=== PATIENT | female | born 1985 | race Caucasian/White ===

== ENCOUNTER 2016-05-16 12:35 | Emergency (ER) | payer MEDICAID ==
[~2016-05-16] VITALS: Ht 167.6 cm; Wt 89.0 kg
[~2016-05-16 12:35] MED LIST: Z.0.BCPILL PO
[2016-05-16 12:37] VITALS: BP 122/68; PULSE 94; RESP 16; TEMP 98.2; O2SAT 92
--- NOTE | 2016-05-16 15:29 | PD ---
HPI Chief Complaint: Related Problem Time Seen by Provider: 15:25 Travel History International Travel<30 days: No Contact w/Intl Traveler<30days: No Traveled to known affect area: No History of Present Illness HPI Patient is a 30-year-old female who presents emergency department for evaluation of vaginal bleeding. Patient states she started spotting on Monday of last week through Monday. On Monday morning she had heavier bleeding and was passing clots. She reports her last menstrual cycle was on 04/02/16, she stated it started on 03/15/16. Patient reports a miscarriage in January, at that time she was approximately 8 weeks . Patient has 2 home tests with her currently that are positive. She states that she's felt nauseated, has had decreased appetite and a cough. She does have an appointment with her primary doctor tomorrow to be evaluated. PFSH Past Medical History Medical History: Denies Significant Hx Cancer: No Cardiovascular Problems: No Diabetes: No Endocrine: No Hepatitis: No Musculoskeletal: Yes (chronic back pain) Reproductive: Yes (ovarian cysts) Respiratory: No Immunizations Current: Yes Thyroid Disease: No ?: LMP: 04/02/16 : 2 Para: 2 Miscarriage: 1 Ovarian Cysts: Yes Past Surgical History AICD: No Body Medical Devices: NONE Section: Yes Gynecologic Surgery: Yes (C SECTION x2) Joint Replacement: No Pacemaker: No Social History Alcohol Use: No Tobacco Use: No Substance Use: No Allergies-Medications (Allergen,Severity, Reaction): Coded Allergies: No Known Allergies (Verified , 05/16/16) Reported Meds & Prescriptions Reported Meds & Active Scripts Active Reported Control Pills (Miscellaneous Medication) Tab 1 Tab PO HS Review of Systems Except as stated in HPI: all other systems reviewed are Neg Respiratory: Positive: Cough Gastrointestinal: Positive: Nausea Genitourinary: Positive: Vaginal Bleeding Physical Exam Narrative GENERAL: Well-developed, well-nourished, alert female. Resting comfortably in no acute distress. SKIN: Warm and dry. HEAD: Atraumatic. Normocephalic. EYES: Pupils equal and round. No scleral icterus. No injection or drainage. ENT: No nasal bleeding or discharge. Mucous membranes pink and moist. NECK: Trachea midline. No JVD. CARDIOVASCULAR: Regular rate and rhythm. No murmur appreciated. RESPIRATORY: No accessory muscle use. Clear to auscultation. Breath sounds equal bilaterally. GASTROINTESTINAL: Abdomen soft, non-tender, nondistended. Hepatic and splenic margins not palpable. MUSCULOSKELETAL: No obvious deformities. No clubbing. No cyanosis. No edema. NEUROLOGICAL: Awake and alert. No obvious cranial nerve deficits. Motor grossly within normal limits. Normal speech. PSYCHIATRIC: Appropriate mood and affect; insight and judgment normal. Data Data Last Documented VS Vital Signs Date Time Temp Pulse Resp B/P Pulse Ox O2 Delivery O2 Flow Rate FiO2 05/16/16 12:37 98.2 94 16 122/68 92 Room Air Orders Ed Urine Pregnancytest Poc (05/16/16 13:20) Beta Hcg (Quant/Titer) (05/16/16 13:20) Urinalysis - C+S If Indicated (05/16/16 15:28) Us Pelvis (Ques Pr/Ect)W Trans (05/16/16 ) Labs Laboratory Tests Test 05/16/16 05/16/16 15:04 15:10 Urine Color YELLOW Urine Turbidity CLEAR Urine pH 6.0 Urine Specific [place] 1.023 Urine Protein NEG mg/dL Urine Glucose (UA) NEG mg/dL Urine Ketones NEG mg/dL Urine Occult Blood NEG Urine Nitrite NEG Urine Bilirubin NEG Urine Urobilinogen LESS THAN 2.0 MG/DL Urine Leukocyte Esterase NEG Urine RBC 1 /hpf Urine WBC 1 /hpf Urine Squamous Epithelial 5 /hpf Cells Urine Bacteria RARE /hpf Urine Hyaline Casts 1 /lpf Urine Mucus FEW /lpf Microscopic Urinalysis Comment CULT NOT INDICATED Human Chorionic Gonadotropin, 70 MIU/ML Quant MDM Medical Decision Making Medical Screen Exam Complete: Yes Emergency Medical Condition: Yes Interpretation(s) Vital Signs Date Time Temp Pulse Resp B/P Pulse Ox O2 Delivery O2 Flow Rate FiO2 05/16/16 12:37 98.2 94 16 122/68 92 Room Air Differential Diagnosis Threatened miscarriage versus spontaneous versus anemia versus dysfunctional uterine bleeding versus other Narrative Course Patient is a 30-year-old female presenting to the emergency department for evaluation of vaginal bleeding after positive test. Urine test performed in the emergency department is positive. HCG ordered and pending. Patient is resting comfortably, her vital signs are stable. Patient will be transferred to medical bed when available. Nara Thompson May 16, 2016 15:29
[2016-05-16 15:50] LABS: BETA HCG QUANT 70 MIU/ML (0-5)
[2016-05-16 16:11] LABS: BACTERIA, URINE RARE /hpf; BLOOD, URINE NEG (NEG); COMMENT (UR) CULT NOT INDICATED; CULTURE IF INDICATED CULT NOT INDICATED; GLUCOSE,URINE NEG (NEG); HYALINE CAST, URINE 1 /lpf (RARE); KETONE, URINE NEG (NEG); MUCUS URINE FEW /lpf (OCC); NITRITE,URINE NEG (NEG); SQUAMOUS EPITHELIAL CELL URINE 5 /hpf (0-5); URINE COLOR YELLOW (YELLW/STRAW)
--- NOTE | 2016-05-16 16:56 | PD ---
Physical Exam Narrative Patient was seen and examined with my assistant secretary. Patient's blood type A+. PRODUCTION WELDER exam: Patient has small amount of reddish discharge in the vaginal vault. The cervix is long thick and closed. Uterus is mildly enlarged with mild tenderness on palpation. No adnexal mass or tenderness. Data Data Last Documented VS Vital Signs Date Time Temp Pulse Resp B/P Pulse Ox O2 Delivery O2 Flow Rate FiO2 05/16/16 12:37 98.2 94 16 122/68 92 Room Air Orders Ed Urine Pregnancytest Poc (05/16/16 13:20) Beta Hcg (Quant/Titer) (05/16/16 13:20) Urinalysis - C+S If Indicated (05/16/16 15:28) Us Pelvis (Ques Pr/Ect)W Trans (05/16/16 ) Labs Laboratory Tests Test 05/16/16 05/16/16 15:04 15:10 Urine Color YELLOW Urine Turbidity CLEAR Urine pH 6.0 Urine Specific [place] 1.023 Urine Protein NEG mg/dL Urine Glucose (UA) NEG mg/dL Urine Ketones NEG mg/dL Urine Occult Blood NEG Urine Nitrite NEG Urine Bilirubin NEG Urine Urobilinogen LESS THAN 2.0 MG/DL Urine Leukocyte Esterase NEG Urine RBC 1 /hpf Urine WBC 1 /hpf Urine Squamous Epithelial 5 /hpf Cells Urine Bacteria RARE /hpf Urine Hyaline Casts 1 /lpf Urine Mucus FEW /lpf Microscopic Urinalysis Comment CULT NOT INDICATED Human Chorionic Gonadotropin, 70 MIU/ML Quant MDM Supervised Visit with HELLEN: Yes Interpretation(s) 1652 PM. Beta hCG 70. Diagnosis Primary Impression: Threatened Patient Instructions: General Instructions Additional Instruction: Encourage by mouth fluid. Bedrest. Follow-up with personal physician in a.m. Repeat beta hCG in 2-3 days. Med/Other Pt SpecificInfo: No Meds Exist/No RX given Scripts No Active Prescriptions or Reported Meds Disposition: DISCHARGE HOME Condition: Stable Carlos Interiano MD May 16, 2016 16:56
[2016-05-16 17:19] VITALS: BP 120/62; PULSE 88; RESP 16; O2SAT 96
== END 2016-05-16 17:46 | disposition home or self-care (01) ==
LOC: NEPC 12:35
DX: O20.0 Threatened abortion (principal); Z87.39 Personal history of other diseases of the musculoskeletal system and connective tissue; Z87.42 Personal history of other diseases of the female genital tract; Z3A.00 Weeks of gestation of pregnancy not specified
CPT/HCPCS: 81001; 84702; 84703

== ENCOUNTER 2016-05-26 08:47 | Emergency (ER) | payer MEDICAID ==
[2016-05-26 08:51] VITALS: BP 111/61; PULSE 102; RESP 20; TEMP 98; O2SAT 94
--- NOTE | 2016-05-26 10:02 | PD ---
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 Patient was seen in the emergency room on April with threatened AB. Patient states that the bleeding stopped completely a few days after that. Patient started having vaginal bleeding yesterday. Patient states that she passed blood clots and tissue this morning. Patient denies abdominal pain. Patient states that she feels abdominal bloating. Patient denies any nausea vomiting diarrhea. Patient denies any dysuria frequency. Patient denies fever chills. Patient denies any chest pain or shortness of breath. PFSH Past Medical History Cancer: No Cardiovascular Problems: No Diabetes: No Diminished Hearing: No Endocrine: No Hepatitis: No Musculoskeletal: Yes (chronic back pain) Reproductive: Yes (ovarian cysts) Respiratory: No Immunizations Current: Yes Thyroid Disease: No ?: Not : 2 Para: 2 Miscarriage: 1 : 0 Ovarian Cysts: Yes Past Surgical History AICD: No Body Medical Devices: NONE Section: Yes (x2) Gynecologic Surgery: Yes (C SECTION x2) Joint Replacement: No Pacemaker: No Social History Alcohol Use: No Tobacco Use: No Substance Use: No Allergies-Medications (Allergen,Severity, Reaction): Coded Allergies: No Known Allergies (Verified , 05/16/16) Reported Meds & Prescriptions Reported Meds & Active Scripts Active Active Prescriptions or Reported Medications Unobtainable Review of Systems General / Constitutional: No: Fever Eyes: No: Visual changes HENT: No: Headaches Cardiovascular: No: Chest Pain or Discomfort Respiratory: No: Shortness of Breath Gastrointestinal: No: Abdominal Pain Genitourinary: Positive: Vaginal Bleeding, No: Dysuria Musculoskeletal: No: Pain Skin: No Rash Neurologic: No: Weakness Psychiatric: No: Depression Endocrine: No: Polydipsia Hematologic/Lymphatic: No: Easy Bruising Physical Exam Narrative GENERAL: Well-nourished, well-developed patient. SKIN: Warm and dry. HEAD: Normocephalic. EYES: No scleral icterus. No injection or drainage. NECK: Supple, trachea midline. No JVD or lymphadenopathy. CARDIOVASCULAR: Regular rate and rhythm without murmurs, gallops, or rubs. RESPIRATORY: Breath sounds equal bilaterally. No accessory muscle use. GASTROINTESTINAL: Abdomen soft, non-tender, nondistended. MUSCULOSKELETAL: No cyanosis, or edema. BACK: Nontender without obvious deformity. No CVA tenderness. MANAGER NURSING exam: The uterus is mildly enlarged. The cervix is long thick and closed. No adnexal mass or tenderness. Data Data Last Documented VS Vital Signs Date Time Temp Pulse Resp B/P Pulse Ox O2 Delivery O2 Flow Rate FiO2 05/26/16 13:01 95 16 111/57 96 Room Air 05/26/16 08:51 98.0 Orders Complete Blood Count With Diff (05/26/16 09:53) Basic Metabolic Panel (Bmp) (05/26/16 09:53) Beta Hcg (Quant/Titer) (05/26/16 09:53) Iv Access Insert/Monitor (05/26/16 09:53) Us Pelvis (Ques Pr/Ect)W Trans (05/26/16 10:50) Labs Laboratory Tests Test 05/26/16 10:03 White Blood Count 9.1 TH/MM3 Red Blood Count 4.07 MIL/MM3 Hemoglobin 11.1 GM/DL Hematocrit 32.9 % Mean Corpuscular Volume 80.9 FL Mean Corpuscular Hemoglobin 27.2 PG Mean Corpuscular Hemoglobin 33.6 % Concent Red Cell Distribution Width 14.5 % Platelet Count 209 TH/MM3 Mean Platelet Volume 8.5 FL Neutrophils (%) (Auto) 70.8 % Lymphocytes (%) (Auto) 21.4 % Monocytes (%) (Auto) 6.9 % Eosinophils (%) (Auto) 0.5 % Basophils (%) (Auto) 0.4 % Neutrophils # (Auto) 6.4 TH/MM3 Lymphocytes # (Auto) 1.9 TH/MM3 Monocytes # (Auto) 0.6 TH/MM3 Eosinophils # (Auto) 0.0 TH/MM3 Basophils # (Auto) 0.0 TH/MM3 CBC Comment DIFF FINAL Differential Comment Sodium Level 139 MEQ/L Potassium Level 3.6 MEQ/L Chloride Level 104 MEQ/L Carbon Dioxide Level 27.6 MEQ/L Anion Gap 7 MEQ/L Blood Urea Nitrogen 9 MG/DL Creatinine 0.70 MG/DL Estimat Glomerular Filtration 99 ML/MIN Rate Random Glucose 91 MG/DL Calcium Level 8.9 MG/DL Human Chorionic Gonadotropin, 69 MIU/ML Quant MDM Medical Decision Making Medical Screen Exam Complete: Yes Emergency Medical Condition: Yes Interpretation(s) 10:46 AM. CBC within normal limit. CMP within normal limit. Beta hCG 69. Last Impressions Pelvis Ultrasound 05/26/16 1050 Signed Impressions: Service Date/Time: , May 26, 2016 12:08 - CONCLUSION: Thickened endometrial stripe with some hypoechoic and cystic change correlate for retained products of conception. Marcel Block MD Differential Diagnosis Differential diagnosis including dysmenorrhea, ectopic , threatened AB , incomplete AB, completed AB. Narrative Course 30-year-old female with vaginal bleeding. Patient was seen in emergency room 2 weeks ago for threatened AB. The bleeding stopped and started again yesterday. Spoke with the ED OB. Advised for patient to follow-up with her residential subcontractor. Diagnosis Primary Impression: Incomplete Patient Instructions: General Instructions Additional Instructions: [id number] with vitamins. Follow-up with personal physician and residential subcontractor. Patient has appointment with residential subcontractor. Return if excessive bleeding or worse. Med/Other Pt SpecificInfo: No Change to Meds Scripts No Active Prescriptions or Reported Meds Disposition: 01 DISCHARGE HOME Condition: Stable Carlos Interiano MD May 26, 2016 10:02
[2016-05-26 10:16] LABS: AUTOMATED NEUTROPHIL # 6.4 TH/MM3 (1.8-7.7); BASOPHIL % 0.4 % (0.0-2.0); EOSINOPHIL % 0.5 % (0.0-4.0); HEMATOCRIT 32.9 % (35.0-46.0); HEMO FLAGS DIFF FINAL; LYMPH % 21.4 % (9.0-44.0); LYMPHOCYTE # 1.9 TH/MM3 (1.0-4.8); MEAN CELL VOLUME 80.9 FL (80.0-100.0); MEAN CORPUSCULAR HEMOGLOBIN 27.2 PG (27.0-34.0); MEAN CORPUSCULAR HGB CONC 33.6 % (32.0-36.0); MONO % 6.9 % (0.0-8.0); NEUT % 70.8 % (16.0-70.0); PLATELET COUNT 209 TH/MM3 (150-450); RED BLOOD COUNT 4.07 MIL/MM3 (4.00-5.30); RED CELL DISTRIBUTION WIDTH 14.5 % (11.6-17.2); WHITE BLOOD COUNT 9.1 TH/MM3 (4.0-11.0)
[2016-05-26 10:27] LABS: BICARBONATE 27.6 MEQ/L (21.0-32.0); POTASSIUM 3.6 MEQ/L (3.5-5.1)
[2016-05-26 13:01] VITALS: BP 111/57; PULSE 95; RESP 16; O2SAT 96
--- NOTE | 2016-05-26 13:23 | RADRPT ---
EXAM DATE/TIME: 05/26/2016 12:08 [facility] COMPARISON: No previous studies available for comparison. INDICATIONS : Vaginal bleeding with . LAB(S): Beta-hC05/16/16=70, 05/26/16=69 MEDICAL HISTORY : . Back pain. SURGICAL HISTORY : section. ENCOUNTER: Initial ACUITY: 1 month PAIN SCORE: 4/10 LOCATION: Bilateral pelvis MEASUREMENTS: UTERUS: 9.1 x 7.2 x 6.0 cm ENDOMETRIAL STRIPE: >20 mm RIGHT OVARY: 2.3 x 2.2 x 2.2 cm cm LEFT OVARY: 4.5 x 3.5 x 3.7 cm cm FINDINGS: UTERUS: The myometrium has homogeneous echotexture without mass. There is significant thickening of the endom etrial stripe with its hypoechoic and even cystic debris RIGHT OVARY: Ovary contains no mass or significant cystic lesion. LEFT OVARY: Ovary contains no mass or significant cystic lesion. MISCELLANEOUS: No free fluid. CONCLUSION: Thickened endometrial stripe with some hypoechoic and cystic change correlate for retained products o f conception. Marcel Block MD on May 26, 2016 at 13:20 Board Certified Radiologist. This report was verified electronically.
== END 2016-05-26 15:09 | disposition home or self-care (01) ==
LOC: NEPB 08:47
DX: O03.4 Incomplete spontaneous abortion without complication (principal)
CPT/HCPCS: 76700; 76817; 80048; 84702; 85025

== ENCOUNTER → 2017-04-12 | Outpatient (CLI) | payer MEDICAID | LOC: HPND 08:46 | PROVIDERS: ATTEND Obstetrics & Gynecology | DX: O35.0XX0 Maternal care for (suspected) central nervous system malformation in fetus, not applicable or unspecified (principal) | CPT/HCPCS: 36415; 76811; 76825; 76827; 93325 ==

== ENCOUNTER → 2017-04-19 | Outpatient (CLI) | payer MEDICAID | LOC: HPND 10:44 | PROVIDERS: ATTEND Obstetrics & Gynecology | DX: O35.1XX0 Maternal care for (suspected) chromosomal abnormality in fetus, not applicable or unspecified (principal); O35.0XX0 Maternal care for (suspected) central nervous system malformation in fetus, not applicable or unspecified | CPT/HCPCS: 76815 ==

== ENCOUNTER → 2017-05-03 | Outpatient (CLI) | payer MEDICAID | LOC: HPND 07:43 | PROVIDERS: ATTEND Obstetrics & Gynecology | DX: O35.1XX0 Maternal care for (suspected) chromosomal abnormality in fetus, not applicable or unspecified (principal) | CPT/HCPCS: 76816 ==